=== PATIENT | male | born 1985 ===

== ENCOUNTER 2017-02-01 21:40 | Emergency (ER) | payer OTHER ==
--- NOTE | 2017-02-01 21:45 | PDOC ---
History of Present Illness - General Chief Complaint: Back Pain Stated Complaint: LW BACK PAIN Time Seen by Provider: 02/01/17 21:44 History Source: Patient Exam Limitations: No Limitations - History of Present Illness Initial Comments: 02/01/17 22:50 This is a 31-year-old male who comes in complaining of low back pain and spasm bilateral. Patient denies any radiation down his leg. Patient said that he moved up here from another area and was doing a lot of heavy lifting and moving of boxes. Patient has a history of a similar episode in the past secondary to doing a lot of heavy lifting. Patient said that his prior episode resolved after about 2 weeks of anti-inflammatories. Patient did take some ibuprofen without relief and comes in for evaluation. Patient denies any numbness or weakness of his lower extremities. Patient denies any paresthesias. Patient denies any change in his bowel or bladder function. PAST MEDICAL HISTORY: Low back pain PAST SURGICAL HISTORY: no significant history FAMILY HISTORY: no pertinant history SOCIAL HISTORY: Pt lives with family and is employed. MEDICATIONS: reviewed ALLERGIES: As per nursing notes Review of Systems General: No fevers or chills, no weakness, no weight loss HEENT: No change in vision. No sore throat,. No ear pain CardioVascular: No chest pain or shortness of breath Respiratory:No cough, or wheezing. Gastrointestinal: no nausea, vomitting, diarrhea or constipation, No rectal bleeding Genitourinary: No dysuria, hematuria, or frequency Musculoskeletal: As per history of present illness Neurologic: No headache, vertigo, dizziness or loss of consciousness Psychiatric: nor depression Skin: No rashes or easy bruising Endocrine: no increased thirst or abnormal weight change Allergic: no skin or latex allergy All other systems reviewed and normal GENERAL: The patient is awake, alert, and fully oriented, in no acute distress. HEAD: Normal with no signs of trauma. EYES: Pupils equal, round and reactive to light, extraocular movements intact, sclera anicteric, conjunctiva clear. EXTREMITIES: Normal range of motion, no edema. BACK: There is no tenderness on palpation of the thoracic lumbar sacral spine. There is a moderate amount of the spasm of the lower thoracic upper lumbar spine bilateral. On straight leg raising pain is exacerbated at approximately 15 Sensation and motor of the lower extremities intact. NEUROLOGICAL: Normal speech, antalgic gait PSYCH: Normal mood, normal affect. SKIN: Warm, Dry, normal turgor, no rashes or lesions noted. Assessment plan: This is a 31-year-old male with history of low back pain and spasm in the past. Patient re-injured his back with a lot a heavy lifting over the weekend and now comes in for evaluation. Patient was reassured and started on anti-inflammatories and muscle relaxants. Patient was given a orthopedic surgeon to follow-up with. Patient was given prescriptions for Valium and naproxen. Past History - Past Medical History Allergies/Adverse Reactions: Allergies Allergy/AdvReac Type Severity Reaction Status Date / Time No Known Allergies Allergy Unverified 02/01/17 21:42 Home Medications: Ambulatory Orders Diazepam [Valium] 5 mg PO DAILY #14 tablet MDD 1 02/01/17 Ibuprofen [Motrin -] 600 mg PO QID #56 tablet 02/01/17 *DC/Admit/Observation/Transfer Diagnosis at time of Disposition: Low back pain Qualifiers: Chronicity: acute Back pain laterality: bilateral Sciatica presence: without sciatica Qualified Code(s): M54.5 - Low back pain - Discharge Dispostion Disposition: HOME Condition at time of disposition: Good Admit: No - Prescriptions Prescriptions: Ibuprofen [Motrin -] 600 mg PO QID #56 tablet Diazepam [Valium] 5 mg PO DAILY #14 tablet MDD 1 - Referrals Referrals: Jerry Franco MD [Staff Physician] - - Patient Instructions Additional Instructions: For the pain you can take Tylenol 2 extra strength tablets 4 times a day. In addition to that take ibuprofen 600 mg 4 times a day I sent a prescription to her pharmacy for the ibuprofen. At nighttime take diazepam also known as Valium one tablet before bed. Do not take it during the day as it will make you drowsy and you will not be able to go to work. Return to the emergency department immediately with ANY new, persistent or worsening symptoms. Continue any medications as previously prescribed by your physician. You should follow up with your primary doctor as soon as possible regarding today's emergency department visit. . Please make sure your doctor reviews the results of your emergency evaluation. Thank you for coming to the Emergency Department today for your care. It was a pleasure to see you today. Please note that your evaluation is INCOMPLETE until you follow-up with your doctor.
[2017-02-01 21:51] VITALS: BP 134/61; PULSE 80; TEMP 98.3; BMI 33.5
[2017-02-01] MEDS ORDERED: KETOROLAC TROMETHAMINE 60 MG/2 ML VIAL IM ONE (21:58)
[2017-02-01] MEDS ORDERED: KETOROLAC TROMETHAMINE 60 MG/2 ML VIAL ONE ×2 (21:59→22:03)
[2017-02-01] MEDS ORDERED: diazePAM 5 MG TABLET PO ONE (21:59)
[2017-02-01] MEDS ORDERED: diazePAM 5 MG TABLET ONE (21:59)
== END 2017-02-01 22:08 | disposition home or self-care (01) ==
LOC: FER 21:40
PROC: 3E0233Z Introduction of Anti-inflammatory into Muscle, Percutaneous Approach (ICD-10-PCS; principal; 2017-02-01)
DX: M54.5 Low back pain (principal)
CPT/HCPCS: 99282-25